=== PATIENT | male | born 1965 | race Caucasian/White ===

== ENCOUNTER 2016-10-25 06:47 | Day surgery (SDC) | payer BC ==
[~2016-10-25] VITALS: Ht 180.3 cm; Wt 88.5 kg
[~2016-10-25 06:47] MED LIST: LISI10TA6 PO; SIMV-8 PO
[2016-10-25] MEDS ORDERED: LIDOCAINE 1% HCL (LOCAL ANESTH.) INJ 20ML MDV ONE (07:12)
[2016-10-25] MEDS ORDERED: BUPIVACAINE 0.25% INJ 50ML VIAL ONE (07:12)
[2016-10-25] MEDS ORDERED: BUPIVACAINE W/ EPINEPH 0.25% INJ 50ML MDV ONE (07:12)
[2016-10-25] MEDS ORDERED: LIDOCAINE W/ EPINEPHRINE 1 % INJ 30ML ONE (07:12)
[2016-10-25] MEDS ORDERED: LEVOFLOXACIN 500MG 100 ML IV ONE (08:06)
[2016-10-25] MEDS ORDERED: fentaNYL CITRATE 100 MCG/2 ML VL ONE (08:16)
[2016-10-25] MEDS ORDERED: DEXAMETHASONE SOD PHOS 10MG/1ML VIAL INJ ONE (08:16)
[2016-10-25] MEDS ORDERED: KETOROLAC TROMETH 60MG/2ML VIAL IM ONE (08:16)
[2016-10-25] MEDS ORDERED: ONDANSETRON HCL 4 MG/2 ML VIAL ONE (08:16)
[2016-10-25] MEDS ORDERED: MIDAZOLAM HCL 1MG/1ML-2 ML VIAL ONE (08:16)
[2016-10-25] MEDS ORDERED: PROPOFOL 10 MG/ML 20 ML IV ONE (08:17)
[2016-10-25] MEDS ORDERED: ROCURONIUM 10MG/ML 10ML VIAL IV ONE (08:19)
[2016-10-25] MEDS ORDERED: ceFAZolin 1GM VL ONE (08:36)
[2016-10-25] MEDS ORDERED: NEOSTIGMINE 1 MG/ML INJ (10mg/10ML VIAL) ONE (09:21)
[2016-10-25] MEDS ORDERED: GLYCOPYRROLATE 0.2 MG/ML 1ML VIAL ONE (09:21)
[2016-10-25] MEDS ORDERED: HYDROmorphone HCL 2 MG/ML VL IV PRN (09:45)
[2016-10-25] MEDS ORDERED: ONDANSETRON HCL 4 MG/2 ML VIAL IV ONE (09:45)
[2016-10-25 10:40] VITALS: BP 130/75
== END 2016-10-25 10:50 | disposition home or self-care (01) ==
LOC: SUR 06:47
PROVIDERS: ATTEND Surgery
DX: K42.9 Umbilical hernia without obstruction or gangrene (principal)
CPT/HCPCS: 49585; C1781; J0690; J1100; J1885; J1956; J2001; J2250; J2405; J2704; J3010; J3490

== ENCOUNTER → 2018-12-10 | Outpatient (CLI) | payer BC, OTHER ==
[~2018-12-10] VITALS: Ht 180.3 cm; Wt 90.7 kg
[2018-12-10 12:05] LABS: Basophils # (auto) 0 uL; Basophils % (auto) 0.5 % (0.0-2.0); Eosinophils # (auto) 0.2 uL; Eosinophils % (auto) 3.1 % (0.0-7.0); Hematocrit 44.6 % (41.0-53.0); Lymphocytes # (auto) 1.8 uL; Lymphocytes % (auto) 28.6 % (10.0-50.0); Mean Corpuscular Hemoglobin 28.5 pg (28.0-32.0); Mean Corpuscular Hgb Conc. 33.7 g/dL (32.0-36.0); Mean Corpuscular Volume 84.4 fL (80.0-100.0); Monocytes # (auto) 0.4 uL; Monocytes % (auto) 6.7 % (0.0-12.0); Neutrophils # (auto) 3.9 uL; Neutrophils % (auto) 61.1 % (37.0-80.0); Nucleated Red Blood Cells % 0.1 %; Platelet Count (auto) 232 10^3/uL (140-450); Red Blood Cells 5.28 10^6/uL (4.5-5.90); Red Cell Distribution Width 13.8 % (11.8-14.3); White Blood Cell 6.3 10^3/uL (4.4-10.8)
[2018-12-10 12:06] LABS: Potassium 4.1 mmol/L (3.5-5.1); Urine Blood Negative /uL (Negative); Urine Specific Gravity 1.013 (1.001-1.035)
[2018-12-10 12:12] LABS: Free T4 (Free Thyroxine) 1.23 ng/dL (0.89-1.76); Prostate Specific Antigen 0.77 ng/mL (0.0-4.0)
[2018-12-10 12:27] LABS: Albumin 4.2 g/dL (3.4-5.0); BUN/Creatinine Ratio 8.3; Bilirubin, Total 0.5 mg/dL (0.2-1.0); Calcium 9.1 mg/dL (8.5-10.1); Total Protein 7.7 g/dL (6.4-8.2)
== END | disposition home or self-care (01) ==
LOC: Rad HDHVI 07:59
PROVIDERS: ATTEND Internal Medicine Cardiovascular Disease
DX: I47.1 Supraventricular tachycardia (principal); I10 Essential (primary) hypertension; E03.9 Hypothyroidism, unspecified; E11.9 Type 2 diabetes mellitus without complications; E29.1 Testicular hypofunction; D51.9 Vitamin B12 deficiency anemia, unspecified; E55.9 Vitamin D deficiency, unspecified; C61 Malignant neoplasm of prostate; N39.0 Urinary tract infection, site not specified
CPT/HCPCS: 36415; 78452; 80053; 80061; 81003; 82306; 82607; 83036; 84153; 84403; 84439; 84443; 85025; 93017; 93306; 96374; A9500

== ENCOUNTER → 2020-08-17 | Outpatient (CLI) | payer OTHER ==
[~2020-08-17] MED LIST changes: +LISI-648 PO; -LISI10TA6 PO
== END | disposition home or self-care (01) ==
LOC: LAB 16:55
PROVIDERS: ATTEND Physician Assistant
DX: D23.71 Other benign neoplasm of skin of right lower limb, including hip (principal); L57.0 Actinic keratosis